=== PATIENT | male | born 2000 | race American Indian/Alaskan Native ===

== ENCOUNTER 2020-02-26 01:47 | Emergency (ER) | payer MEDICAID ==
[~2020-02-26] VITALS: Ht 185.4 cm; Wt 104.0 kg
[~2020-02-26 01:47] MED LIST: IBUP-2697 PO
[2020-02-26] MEDS ORDERED: iohexol 300mg/ml 100ml inj. ONE (02:01)
[2020-02-26 03:21] VITALS: BP 126/79
== END 2020-02-26 03:23 | disposition home or self-care (01) ==
LOC: ER 01:47
DX: M25.512 Pain in left shoulder (principal); M25.511 Pain in right shoulder; Z00.8 Encounter for other general examination; Z79.899 Other long term (current) drug therapy; V87.7XXA Person injured in collision between other specified motor vehicles (traffic), initial encounter; Y93.89 Activity, other specified; Y92.89 Other specified places as the place of occurrence of the external cause; Y99.8 Other external cause status
CPT/HCPCS: 70450; 71260; 72125; 74177; 99285; Q9967

== ENCOUNTER 2020-09-09 14:07 | Emergency (ER) | payer MEDICAID ==
[~2020-09-09] VITALS: Ht 190.5 cm; Wt 114.2 kg
--- NOTE | 2020-09-09 15:15 | NUR ---
RIGHT HAND, DIGIT #5 FINGER NAIL SCRAPING TOOL DROPPED. CONTAMINATED AND NOT INCLUDED IN KIT. [facility] DEBRA #144 AWARE & NOTED IN KIT.
--- NOTE | 2020-09-09 16:21 | NUR ---
1435: EXAM EXPLAINED. PT GAVE VERBAL CONSENT FOR EXAM WHICH WAS PERFORMED IN ED17 W/ [facility] DEBRA #144 PRESENT. PT DENIES ANY PAIN OR PAST MEDICAL HISTORY. HE REPORTS WRESTLING AROUND WITH HIS FRIENDS LAST NIGHT AT A GREEN PARTY AND CONSUMNG ETOH. 1515: PT ESCORTED OUT OF ED WITH [facility]. 1530: OSWALD Bradshaw TO SEE PT WHO HAD VERBALLY INDICATED HE HAD NO MEDICAL ISSUES, CURRENTLY OR IN THE PAST.
[2020-09-09 16:25] VITALS: BP 157/79
== END 2020-09-09 15:15 ==
LOC: ER 14:08
DX: Z04.81 Encounter for examination and observation of victim following forced sexual exploitation (principal); Z79.899 Other long term (current) drug therapy
CPT/HCPCS: 99284

== ENCOUNTER 2024-03-09 00:29 | Emergency (ER) | payer MEDICAID, OTHER ==
[~2024-03-09] VITALS: Ht 185.4 cm; Wt 100.0 kg
[2024-03-09 00:38] VITALS: BP 132/89; PULSE 77; TEMP 98.3; O2SAT 98
[2024-03-09 01:17] VITALS: RESP 20
== END 2024-03-09 01:18 ==
LOC: ER 00:29
DX: S70.11XA Contusion of right thigh, initial encounter (principal); S09.90XA Unspecified injury of head, initial encounter; T65.891A Toxic effect of other specified substances, accidental (unintentional), initial encounter; Z88.6 Allergy status to analgesic agent; Z65.3 Problems related to other legal circumstances; X58.XXXA Exposure to other specified factors, initial encounter; Y93.89 Activity, other specified; Y92.89 Other specified places as the place of occurrence of the external cause; Y99.8 Other external cause status
CPT/HCPCS: 99283